=== PATIENT | female | born 1965 | race Caucasian/White ===

== ENCOUNTER 2020-09-23 15:45 | Outpatient (CLI) | payer OTHER, SELFPAY | END 2020-09-23 15:46 | disposition home or self-care (01) | LOC: ANHCOVIDVC 15:45 | DX: Z23 Encounter for immunization (principal) | CPT/HCPCS: 0001A; 91300 ==

== ENCOUNTER 2020-10-14 15:20 | Outpatient (CLI) | payer OTHER, SELFPAY | END 2020-10-14 15:21 | disposition home or self-care (01) | LOC: ANHCOVIDVC 15:20 | DX: Z23 Encounter for immunization (principal) | CPT/HCPCS: 0002A; 91300 ==